=== PATIENT | female | born 1980 | race Caucasian/White ===

== ENCOUNTER 2017-05-11 10:58 | Emergency (ER) | payer BC ==
[2017-05-11] MEDS ORDERED: NORMAL SALINE 1000 ML 1,000 ML IV ONE (11:58)
--- NOTE | 2017-05-11 11:59 | ER Document Report ---
ED Medical Screen (RME) - General Chief Complaint: Vomiting Stated Complaint: VOMITING Time Seen by Provider: 05/11/17 11:57 Notes: Patient states she is feeling depressed and suicidal she is unable to eat and very tearful. TRAVEL OUTSIDE OF THE [place] IN LAST 30 DAYS: No - Related Data Allergies/Adverse Reactions: No Known Allergies Allergy (Verified 05/11/17 11:07) Past Medical History - Social History Chew tobacco use (# tins/day): No Frequency of alcohol use: Social Drug Abuse: None Renal/ Medical History: Denies: Hx Peritoneal Dialysis Past Surgical History: Reports: Hx Appendectomy, Hx Tubal Ligation - R sided - Immunizations Hx Diphtheria, Pertussis, Tetanus Vaccination: Yes Physical Exam - Vital signs Vitals: Temp Pulse Resp BP Pulse Ox 97.7 F 80 20 161/107 H 97 05/11/17 11:08 05/11/17 11:08 05/11/17 11:08 05/11/17 11:08 05/11/17 11:08 Course - Vital Signs Vital signs: Temp Pulse Resp BP Pulse Ox 97.7 F 80 20 161/107 H 97 05/11/17 11:08 05/11/17 11:08 05/11/17 11:08 05/11/17 11:08 05/11/17 11:08
[2017-05-11 12:53] LABS: ABSOLUTE EOSINOPHILS # (AUTO) 0.1 10^3/uL (0.0-0.6); ABSOLUTE LYMPHOCYTES (AUTO) 1.7 10^3/uL (0.5-4.7); ABSOLUTE MONOCYTES (AUTO) 0.3 10^3/uL (0.1-1.4); BASOPHILS % (AUTO) 0.6 % (0-2); EOSINOPHILS % (AUTO) 0.9 % (0-6); HEMATOCRIT 41.6 % (36.0-47.0); HEMOGLOBIN 14.5 g/dL (12.0-15.5); HGB HCT DIFFERENCE 1.9; LYMPHOCYTES % (AUTO) 23.7 % (13-45); MEAN CORPUSCULAR HGB CONC 34.8 g/dL (32.0-36.0); MEAN CORPUSCULAR VOLUME 86 fl (80-97); MONOCYTES % (AUTO) 4.8 % (3-13); RED BLOOD COUNT 4.83 10^6/uL (3.72-5.28); RED CELL DISTRIBUTION WIDTH 13.9 % (11.5-14.0); WHITE BLOOD COUNT 7.2 10^3/uL (4.0-10.5)
[2017-05-11 13:11] LABS: ALANINE AMINOTRANSFERASE 26 U/L (9-52); ALBUMIN 4.8 g/dL (3.5-5.0); ALKALINE PHOSPHATASE 72 U/L (38-126); ANION GAP 12 (5-19); ASPARTATE AMINO TRANSFERASE 13 U/L (14-36); BILIRUBIN,DIRECT 0.1 mg/dL (0.0-0.4); BILIRUBIN,TOTAL 0.8 mg/dL (0.2-1.3); BLOOD UREA NITROGEN 10 mg/dL (7-20); CARBON DIOXIDE 28 mmol/L (22-30); CHLORIDE 105 mmol/L (98-107); CREATININE RESULT 0.73 mg/dL (0.52-1.25); GLUCOSE 115 mg/dL (75-110); POTASSIUM 3.6 mmol/L (3.6-5.0); SODIUM 145.3 mmol/L (137-145); TOTAL PROTEIN 7.6 g/dL (6.3-8.2)
[2017-05-11 13:21] LABS: APPEARANCE,URINE SLIGHTLY-CLOUDY; BILIRUBIN,URINE NEGATIVE (NEGATIVE); GLUCOSE, URINE NEGATIVE (NEGATIVE); KETONES,URINE NEGATIVE (NEGATIVE); LEUKOCYTE ESTERASE,URINE NEGATIVE (NEGATIVE); NITRITE,URINE NEGATIVE (NEGATIVE); PROTEIN,URINE NEGATIVE (NEGATIVE); URINE SPECIFIC GRAVITY 1.023; UROBILINOGEN,URINE NEGATIVE mg/dL (<2.0)
[2017-05-11 13:25] LABS: ALCOHOL < 10 mg/dL (NONE DETECTED)
[2017-05-11 13:38] LABS: URINE BARBITURATES SCREEN NEGATIVE; URINE METHADONE SCREEN NEGATIVE; URINE OPIATES LOW NEGATIVE; URINE PHENCYCLIDINE SCREEN NEGATIVE
--- NOTE | 2017-05-11 15:26 | ER Document Report ---
ED Psych Disorder / Suicide <GABY MAXWELL - Last Filed: 05/11/17 18:12> - General TRAVEL OUTSIDE OF THE [place] IN LAST 30 DAYS: No <MATHEUSNASEEM - Last Filed: 05/11/17 18:54> - General Chief Complaint: Vomiting Stated Complaint: VOMITING Time Seen by Provider: 05/11/17 11:57 Notes: Patient says that she is depressed and feels suicidal. She has been feeling this way for the past few weeks and is gotten worse in the past week. She has feels that she is unable to eat and has no appetite and she is unable to sleep. Patient has a lot of stress in her life over this past year. Her former , father of her son, has been charged and will be convicted of multiple drug dealing charges and is expected to spend time in senior care. Unfortunately, this patient's 17-year-old son was just arrested last week for having marijuana. In addition, patient has been under a lot of stress at her work. Patient denies any ongoing medical care or psychiatric care. She says that she has been diagnosed in the past as ADHD, but is not on any current medications. Denies using any drugs. Denies smoking marijuana. Interestingly, patient's urine drug screen is positive for marijuana and for amphetamines. When the patient was asked about this finding, she said that she has no idea how these substances ended up in her system. I am going to repeat her urine drug screen. Repeat urine drug screen is still positive for marijuana, but is negative for amphetamines or 2. Labs says that they feel that they could see that the patient did have some amphetamine present in the first specimen, but that on the repeat, the blood level is below the trigger point that would report as positive. (NASEEM JARVIS) - Related Data Allergies/Adverse Reactions: No Known Allergies Allergy (Verified 05/11/17 11:07) Past Medical History - Social History Smoking Status: Current Some Day Smoker - Has not smoked cigarettes for 3 days. Chew tobacco use (# tins/day): No Frequency of alcohol use: Social Drug Abuse: None Family History: Reviewed & Not Pertinent Patient has suicidal ideation: Yes Patient has homicidal ideation: No - Past Medical History Cardiac Medical History: Reports: Hx Hypertension - Is on lisinopril, but did not take it this morning. Endocrine Medical History: Denies: Hx Diabetes Mellitus Type 1, Hx Diabetes Mellitus Type 2 Past Surgical History: Reports: Hx Appendectomy, Hx Tubal Ligation - Immunizations Hx Diphtheria, Pertussis, Tetanus Vaccination: Yes <MATHEUSNASEEM - Last Filed: 05/11/17 18:54> Review of Systems <GABY MAXWELL - Last Filed: 05/11/17 18:12> <NASEEM JARVIS - Last Filed: 05/11/17 18:54> - Review of Systems Notes: REVIEW OF SYSTEMS: CONSTITUTIONAL : Denies fever. EENT: Denies eye, ear, nose or mouth or throat pain or other symptoms. CARDIOVASCULAR: Denies chest pain. RESPIRATORY: Denies cough, chest congestion, or shortness of breath. GASTROINTESTINAL: Denies abdominal pain or nausea, vomiting, or diarrhea. GENITOURINARY: Denies difficulty or painful urinating, urinary frequency, blood in urine. MUSCULOSKELETAL: Denies back or neck pain. Denies joint pain or swelling. SKIN: Denies rash or skin lesions. NEUROLOGICAL: Denies LOC or altered mental status. Denies sensory loss or motor deficits. Psychiatric: Tearful and depressed. ALL OTHER SYSTEMS REVIEWED AND NEGATIVE. (NASEEM JARVIS) Physical Exam <GABY MAXWELL - Last Filed: 05/11/17 18:12> - Vital signs Interpretation: Hypertensive <MATHEUSNASEEM - Last Filed: 05/11/17 18:54> - Vital signs Vitals: Temp Pulse Resp BP Pulse Ox 97.7 F 80 20 161/107 H 97 05/11/17 11:08 05/11/17 11:08 05/11/17 11:08 05/11/17 11:08 05/11/17 11:08 - Notes Notes: PHYSICAL EXAMINATION: GENERAL: Vital signs normal except for her elevated blood pressure. Patient is anxious and tearful and appears to be depressed. HEAD: Atraumatic, normocephalic. EYES: Pupils equal round and reactive to light, extraocular movements intact. ENT: oropharynx clear without exudates. Moist mucous membranes. NECK: Normal range of motion, supple. LUNGS: Breath sounds clear and equal bilaterally. HEART: Regular rate and rhythm without murmurs. ABDOMEN: Soft, nontender. No guarding or rebound. BACK: No tenderness throughout entire back. EXTREMITIES: Normal range of motion without pain. NEUROLOGICAL: Normal speech, normal gait. Normal sensory, motor, and reflex exams. Awake, alert, and oriented x3. Cranial nerves normal. PSYCH: N anxious, tearful, depressed. SKIN: Warm, dry, no rashes. (NASEEM JARVIS) Course - Laboratory Result Diagrams: 05/11/17 12:20 05/11/17 12:20 <GABY MAXWELL - Last Filed: 05/11/17 18:12> - Laboratory Result Diagrams: 05/11/17 12:20 05/11/17 12:20 <NASEEM JARVIS - Last Filed: 05/11/17 18:54> - Re-evaluation Re-evalutation: 05/11/17 15:29 Will have mental health evaluate patient. Am repeating her urine drug screen to verify positive to amphetamines and marijuana or not. 05/11/17 18:52 Patient's repeat drug screen is negative for amphetamines this time. Lab says they think they can still see substance present but not sufficient to cause a positive test result. Marijuana is still shown as being present. Patient relates that she ate some brownies over the past couple of days that she did not realize have been fixed with marijuana in them. Uncertain if any other adult rating substance in the brownies. Patient has been evaluated by mental health and she is going to be handled as a discharge with outpatient follow-up. She is being started on Prozac and Zyprexa. (NASEEM JARVIS) - Vital Signs Vital signs: Temp Pulse Resp BP Pulse Ox 97.7 F 80 20 161/107 H 97 05/11/17 11:08 05/11/17 14:50 05/11/17 11:08 05/11/17 11:08 05/11/17 11:08 - Laboratory Laboratory results interpreted by me: 05/11/17 05/11/17 12:20 12:20 Sodium 145.3 H Glucose 115 H AST 13 L Urine Blood MODERATE H Salicylates < 1.0 L Acetaminophen < 10 L Discharge <GABY MAXWELL - Last Filed: 05/11/17 18:12> <NASEEM JARVIS - Last Filed: 05/11/17 18:54> - Discharge Clinical Impression: Depression, Suicidal ideation Condition: Stable Disposition: HOME, SELF-CARE Additional Instructions: DEPRESSION: Your evaluation reveals that you have mental depression. While symptoms may be vague, they often include disturbance of sleep, fatigue, loss of appetite , and general loss of interest in life. While depression may be a side effect of drugs, or a reaction to a major change in your life, many cases have no known cause. If depression is acute, and related to a major loss in your life, you can expect it to clear completely with time. If you have been depressed a long time , are prone to repeated bouts of depression or low mood, or have been thinking of suicide, get help. Depression can be treated with anti-depressant medication and counselling. Long-term depression will often take a few weeks to clear, even with appropriate medication. Follow-up care is important. SUICIDAL IDEATION: Suicidal ideation is a common medical term for thoughts about suicide, which may be as detailed as a formulated plan, without the suicidal act itself. Although most people who undergo suicidal ideation do not commit suicide, some go on to make suicide attempts. The range of suicidal ideation varies greatly from fleeting to detailed planning, role playing, and unsuccessful attempts. While thoughts about suicide are common, most people do not carry out serious actions to commit suicide. Based upon your evaluation and discussion with you, we do not believe you are currently at risk to act upon your thoughts of suicide. You have agreed to return to the Emergency Department, at any time , if you feel inclined to act upon your suicidal thoughts. FOLLOW-UP CARE: You should contact [facility] ([facility]) first thing tomorrow (05/12/17) morning to arrange medication management with Dr. Degroot. You have been provided with an outpatient resource list with the contact information. You should move forward with outpatient therapy with Ms Zee on [facility]. If you experience worsening or a significant change in your symptoms, notify the physician immediately or return to the Emergency Department at any time for re-evaluation. Prescriptions: Fluoxetine HCl [Prozac 20 mg Capsule] 20 mg PO DAILY #10 capsule Olanzapine [Zyprexa 2.5 Mg Tablet] 2.5 mg PO BID #20 tablet Referrals: [facility] [Provider Group] - Follow up as needed
[2017-05-11 16:10] LABS: URINE BARBITURATES SCREEN NEGATIVE; URINE METHADONE SCREEN NEGATIVE; URINE OPIATES LOW NEGATIVE; URINE PHENCYCLIDINE SCREEN NEGATIVE
[2017-05-11 19:03] VITALS: BP 138/86
--- NOTE | 2017-05-11 19:44 | EKG REPORT ---
SEVERITY:- BORDERLINE ECG - SINUS RHYTHM LVH BY VOLTAGE : Confirmed by: Don Haider MD 11-May-2017 19:43:34
--- NOTE | 2017-05-13 19:15 | PSYCHOLOGICAL NOTE ---
Psych Note - Psych Note Psych Note: Patient is a 37-year-old female brought to the Emergency Department by family members subsequent to an emotional breakdown. She was observed by ED staff and this provider to be tearful. She reported becoming overwhelmed and had hit her breaking point. 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 She reported decreased appetite, ability to sleep and energy for the last week. She denied a plan or access to means to harm herself. Patient reported past diagnosis of ADHD but denied any medication treatment for this diagnosis. She stated the Emergency Department staff had told her she was positive for marijuana and amphetamines. She denied any drug use and reported her son had told her, subsequent to her lab results, he had baked brownies at her home with peers and the brownies were laced with marijuana. Patient indicated this was the only way she would have been exposed to the drugs as she denied any drug use. Patient did admit to self-medicating with lots of alcohol. She reported drinking 4-5 beers nightly or a small mixed drink of bourbon and diet Mt. Dew. She stated she has been drinking this amount for the past couple of weeks. She reported she did not use illegal drugs because her biological mother used drugs and she was taken away from her and placed in foster care because of the drug use. Patient endorsed past passive suicidal ideations without plan or means and stated although her life was currently in upheaval she did not really want to kill herself. She reported she had been referred to a therapist through [facility] at her place of employment. She indicated the therapist s name was Bee Zee, but no session had been scheduled as she was waiting to see the outcome of todays visit to the Emergency Department. Patient indicated she was open to medications to address her mood. Patient denied family history of psychiatric illness. Patients adopted father and biological son offered collateral information about the patient to include the patient has frequent verbally aggressive outbursts that are exacerbated by alcohol use and stress. These outbursts were described as screaming and cursing and being triggered by patients frustration with external stimuli. Patient was described as being involved in serial relationships and her son indicated he felt she was trying to find happiness with anyone. He reported the patient would sometimes leave the home on Thursday and he would not see her again until Thursday night or Thursday. He indicated his younger brother, age 12, spent the majority of his time with the adopted grandparents. Both collaterals described the patient as drinking heavily for the last five years. The adopted father reported when the patient moved out of his house within the last few years he removed several large, empty liquor bottles from the patients bedroom. Patient was alert and oriented to person, place time and circumstance. Mood was sad, tearful and weary. Affect was mood congruent. She denied auditory/visual hallucinations. Thought processes were linear, rational and organized. Conversational speech was within normal limits for rate, tone and prosody. Intellectual abilities were estimated within the average range. Attention and concentration were within normal limits. Insight, judgement and impulse control were fair. 1. [id number] (F33.1) Major Depressive Disorder, Recurrent, Mild Impression/Plan: Patient is psychiatrically clear for discharge. Though she continues to demonstrate a tearful affect, there is no evidence of self-harm or harm to others. Patient denies suicidal/homicidal ideation, intent or plan. Provided education regarding appropriate responsibility and boundaries. Provided additional outpatient resources regarding parenting and relational conflicts. Encouraged patient to seek outpatient counseling for her son as well. Patient is already refereed to outpatient therapy through [facility] at her place of employment and she was encouraged to use her available support system. Consulted with Dr. Marshall in the treatment and care of this patient. ED physician in agreement with recommendations and disposition.
== END 2017-05-11 18:45 | disposition home or self-care (01) ==
LOC: ER 10:58
DX: F32.9 Major depressive disorder, single episode, unspecified (principal); R45.851 Suicidal ideations; F41.9 Anxiety disorder, unspecified; I10 Essential (primary) hypertension; F17.210 Nicotine dependence, cigarettes, uncomplicated
CPT/HCPCS: 93005; 99283; 96360; 36415; 80307 ×4; 84703; 85025; 81025; 80053; 81001; 93010; J7030

== ENCOUNTER 2017-07-13 01:54 | Emergency (ER) | payer BC ==
[2017-07-13 02:04] VITALS: BP 129/97
[2017-07-13] MEDS ORDERED: NORMAL SALINE 1000 ML 1,000 ML IV ONE ×2 (02:34)
--- NOTE | 2017-07-13 02:36 | ER Document Report ---
ED GI/ - General Chief Complaint: Nausea/Vomiting Stated Complaint: VOMITING Time Seen by Provider: 07/13/17 02:21 Mode of Arrival: Ambulatory Information source: Patient Notes: 37-year-old female presents to ED for nausea vomiting starting this morning. She states some of the people at work of had the nausea and vomiting and been at work vomiting. She states she just cannot stand the nausea and vomiting anymore today. TRAVEL OUTSIDE OF THE [place] IN LAST 30 DAYS: No - HPI Patient complains to provider of: Abdominal pain - Cramping started after the, Vomiting Onset: This morning Timing/Duration: Intermittent Quality of pain: Cramping Severity at maximum: Moderate Severity in ED: Moderate Pain Level: 4 Location: Other - Upper abdomen Vaginal bleeding (Compared to normal period): None LMP: June 13, 2017 Associated symptoms: Nausea, Vomiting Exacerbated by: Other - Abdominal pain is caused by vomiting according to patient Relieved by: Denies Similar symptoms previously: No Recently seen / treated by doctor: No - Related Data Allergies/Adverse Reactions: No Known Allergies Allergy (Verified 05/11/17 11:07) Past Medical History - General Information source: Patient - Social History Smoking Status: Current Every Day Smoker Cigarette use (# per day): Yes - 2-3 cigarettes a day Chew tobacco use (# tins/day): No Smoking Education Provided: Yes - 4 minutes Frequency of alcohol use: Social Drug Abuse: None 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 Pulmonary Medical History: Reports: None EENT Medical History: Reports: None Neurological Medical History: Reports: None Endocrine Medical History: Reports: None Renal/ Medical History: Reports: None Malignancy Medical History: Reports: None GI Medical History: Reports: None Musculoskeltal Medical History: Reports None Skin Medical History: Reports None Psychiatric Medical History: Reports: None Traumatic Medical History: Reports: None Infectious Medical History: Reports: None Past Surgical History: Reports: Hx Appendectomy, Hx Tubal Ligation - Immunizations Hx Diphtheria, Pertussis, Tetanus Vaccination: Yes Physical Exam - Vital signs Vitals: Temp Pulse Resp BP Pulse Ox 97 F L 94 18 129/97 H 96 07/13/17 02:02 07/13/17 02:02 07/13/17 02:02 07/13/17 02:02 07/13/17 02:02 Course - Re-evaluation Re-evalutation: 07/13/17 05:44 While awaiting all of the results from the lab values on this patient came in for nausea and vomiting, the nurse informed me that the patient told her that she had to go. She states she then got up and walked out of the room and the nurse thought she was just going to the bathroom. She states she saw the positive drug screen and went into the room to see if she had come back and the IV tubing and catheter were in the sink and the patient was gone. She stated that the patient left about 525. When I had reexamined the patient about 510, after she received fluids and Zofran, she states she was feeling much better and wanted to know when she can go home. I had informed her I was waiting for all the test results to return and then we would talk about her going home. - Vital Signs Vital signs: Temp Pulse Resp BP Pulse Ox 97 F L 94 18 129/97 H 96 07/13/17 02:02 07/13/17 02:02 07/13/17 02:02 07/13/17 02:02 07/13/17 02:02 - Laboratory Result Diagrams: 07/13/17 02:25 07/13/17 02:25 Laboratory results interpreted by me: 07/13/17 07/13/17 07/13/17 02:25 02:25 04:00 WBC 18.6 H RBC 5.49 H Hgb 16.1 H Hct 47.1 H Seg Neuts % (Manual) 89 H Band Neutrophils % 1 L Lymphocytes % (Manual) 8 L Monocytes % (Manual) 2 L Abs Neuts (Manual) 16.7 H Potassium 3.5 L BUN 21 H Glucose 134 H AST 42 H Urine Protein 30 H Ur Leukocyte Esterase SMALL H Discharge - Discharge Clinical Impression: Nausea and vomiting Qualifiers: Vomiting type: unspecified Vomiting Intractability: non-intractable Qualified Code(s): R11.2 - Nausea with vomiting, unspecified Disposition: ELOPED
[2017-07-13] MEDS ORDERED: ONDANSETRON HCL INJ/PF 4 MG/2 ML SDV IV ONE (02:46)
[2017-07-13 02:47] LABS: HEMATOCRIT 47.1 % (36.0-47.0); HEMOGLOBIN 16.1 g/dL (12.0-15.5); MEAN CORPUSCULAR HEMOGLOBIN 29.3 pg (27.0-33.4); MEAN CORPUSCULAR HGB CONC 34.1 g/dL (32.0-36.0); MEAN CORPUSCULAR VOLUME 86 fl (80-97); PLATELET COUNT 410 10^3/uL (150-450); RED BLOOD COUNT 5.49 10^6/uL (3.72-5.28); WHITE BLOOD COUNT 18.6 10^3/uL (4.0-10.5)
[2017-07-13 03:06] LABS: ABSOLUTE LYMPHOCYTES# (MANUAL) 1.5 10^3/uL (0.5-4.7); ABSOLUTE MONOCYTES # (MANUAL) 0.4 10^3/uL (0.1-1.4); ABSOLUTE NEUTROPHILS# (MANUAL) 16.7 10^3/uL (1.7-8.2); BAND NEUTROPHILS % (MANUAL) 1 % (3-5); BASOPHILS % (MANUAL) 0 % (0-2); EOSINOPHILS % (MANUAL) 0 % (0-6); LYMPHOCYTES % (MANUAL) 8 % (13-45); MONOCYTES % (MANUAL) 2 % (3-13); SEGMENTED NEUTROPHILS % (MAN) 89 % (42-78); TOTAL CELLS COUNTED 100
[2017-07-13 03:08] LABS: PLATELET COMMENT ADEQUATE; RBC MORPHOLOGY COMMENT NORMO-CYTIC/CHROMIC
[2017-07-13 03:17] LABS: ALANINE AMINOTRANSFERASE 27 U/L (9-52); ALBUMIN 4.8 g/dL (3.5-5.0); ALKALINE PHOSPHATASE 81 U/L (38-126); ANION GAP 12 (5-19); ASPARTATE AMINO TRANSFERASE 42 U/L (14-36); BILIRUBIN,DIRECT 0.4 mg/dL (0.0-0.4); BILIRUBIN,TOTAL 0.6 mg/dL (0.2-1.3); BLOOD UREA NITROGEN 21 mg/dL (7-20); CALCIUM 10.2 mg/dL (8.4-10.2); CARBON DIOXIDE 27 mmol/L (22-30); CHLORIDE 101 mmol/L (98-107); GLUCOSE 134 mg/dL (75-110); POTASSIUM 3.5 mmol/L (3.6-5.0); SODIUM 140.3 mmol/L (137-145); TOTAL PROTEIN 8.2 g/dL (6.3-8.2)
[2017-07-13] MEDS ORDERED: POTASSIUM CHLORIDE 10 MEQ TABLET.SA PO ONE (03:36)
[2017-07-13 04:39] LABS: BILIRUBIN,URINE NEGATIVE (NEGATIVE); COLOR,URINE YELLOW; GLUCOSE, URINE NEGATIVE (NEGATIVE); KETONES,URINE NEGATIVE (NEGATIVE); LEUKOCYTE ESTERASE,URINE SMALL (NEGATIVE); NITRITE,URINE NEGATIVE (NEGATIVE); PROTEIN,URINE 30 mg/dL (NEGATIVE); URINE SPECIFIC GRAVITY 1.026; UROBILINOGEN,URINE NEGATIVE mg/dL (<2.0)
[2017-07-13 04:42] LABS: APPEARANCE,URINE SLIGHTLY HAZY
[2017-07-13 04:50] LABS: URINE AMPHETAMINES SCREEN NEGATIVE; URINE BARBITURATES SCREEN NEGATIVE; URINE BENZODIAZEPINES SCREEN NEGATIVE; URINE COCAINE SCREEN NEGATIVE; URINE MARIJUANA (THC) SCREEN UNCONFIRMED POSITIVE; URINE METHADONE SCREEN UNCONFIRMED POSITIVE; URINE PHENCYCLIDINE SCREEN NEGATIVE
== END 2017-07-13 05:40 | disposition left against medical advice (07) ==
LOC: ER 01:54
DX: R11.2 Nausea with vomiting, unspecified (principal); R10.9 Unspecified abdominal pain; F17.210 Nicotine dependence, cigarettes, uncomplicated
CPT/HCPCS: 99406; 99281; 96361; 96374; 36415; 84703; 85025; 80053; 81001; 80307; J2405; J7030

== ENCOUNTER 2017-09-14 14:48 | Emergency (ER) | payer BC ==
[2017-09-14] MEDS ORDERED: HALOPERIDOL LACTATE INJ 5 MG/1 ML VIAL ONE (14:55)
[2017-09-14] MEDS ORDERED: HALOPERIDOL LACTATE INJ 5 MG/1 ML VIAL IM ONE (14:56)
--- NOTE | 2017-09-14 15:06 | ER Document Report ---
ED GI/ - General Chief Complaint: Vomiting Stated Complaint: POSSIBLE OVERDOSE Time Seen by Provider: 09/14/17 15:04 Notes: The patient is a 37-year-old female, past medical history chronic marijuana user , presents with several days of nausea and vomiting. She took 7 of her boyfriend's methadone earlier in the day to help with her vomiting. She denies abdominal pain, diarrhea, constipation, shortness of breath, trouble breathing, hematemesis, fevers, recent travel or headache. TRAVEL OUTSIDE OF THE [place] IN LAST 30 DAYS: No - Related Data Allergies/Adverse Reactions: No Known Allergies Allergy (Verified 05/11/17 11:07) Past Medical History - General Information source: Patient - Social History Smoking Status: Current Every Day Smoker Drug Abuse: Marijuana, Prescription drugs Family History: Reviewed & Not Pertinent - Past Medical History Cardiac Medical History: Reports: Hx Hypertension - Is on lisinopril, but did not take it this morning. Endocrine Medical History: Denies: Hx Diabetes Mellitus Type 1, Hx Diabetes Mellitus Type 2 Renal/ Medical History: Denies: Hx Peritoneal Dialysis Past Surgical History: Reports: Hx Appendectomy, Hx Tubal Ligation - Immunizations Hx Diphtheria, Pertussis, Tetanus Vaccination: Yes Review of Systems - Review of Systems Notes: REVIEW OF SYSTEMS: CONSTITUTIONAL: -fevers, -chills EENT: -eye pain, -difficulty swallowing, -nasal congestion CARDIOVASCULAR: -chest pain, -syncope. RESPIRATORY: -cough, -SOB GASTROINTESTINAL: -abdominal pain, +nausea, +vomiting, -diarrhea GENITOURINARY: -dysuria, -hematuria MUSCULOSKELETAL: -back pain, -neck pain SKIN: -rash or skin lesions. HEMATOLOGIC: -easy bruising or bleeding. LYMPHATIC: -swollen, enlarged glands. NEUROLOGICAL: -altered mental status or loss of consciousness, -headache, - neurologic symptoms PSYCHIATRIC: -anxiety, -depression. ALL OTHER SYSTEMS REVIEWED AND NEGATIVE. Physical Exam - Vital signs Vitals: Temp Pulse Resp BP Pulse Ox 97.6 F 75 14 141/83 H 100 09/14/17 14:55 09/14/17 14:55 09/14/17 14:55 09/14/17 14:55 09/14/17 14:55 - Notes Notes: PHYSICAL EXAMINATION: GENERAL: Making very loud retching sounds without any active vomiting. HEAD: Atraumatic, normocephalic. EYES: Pupils equal round and reactive to light, extraocular movements intact, sclera anicteric, conjunctiva are normal. ENT: nares patent, oropharynx clear without exudates. Moist mucous membranes. NECK: Normal range of motion, supple without lymphadenopathy LUNGS: Breath sounds clear to auscultation bilaterally and equal. No wheezes rales or rhonchi. HEART: Regular rate and rhythm without murmurs ABDOMEN: Soft, nontender, normoactive bowel sounds. No guarding, no rebound. No masses appreciated. EXTREMITIES: Normal range of motion, no pitting or edema. No cyanosis. NEUROLOGICAL: Cranial nerves grossly intact. Normal speech, normal gait. Normal sensory and motor exams. PSYCH: Normal mood, normal affect. SKIN: Warm, Dry, normal turgor, no rashes or lesions noted. Course - Re-evaluation Re-evalutation: Patient has no signs of methadone overdose and is wide awake and satting 100% on room air. Suspect her nausea, vomiting is related to cannabinoid hyperemesis syndrome since the symptoms resolved after Haldol and capsaicin cream. Counseled patient about smoking cessation of marijuana. She adamantly denies to multiple people that she tried to kill herself and that she was only using her boyfriend's methadone in order to help with her nausea and vomiting. Blood work is unremarkable and abdomen is completely soft and nontender. Will discharge patient home with [facility] referral. - Vital Signs Vital signs: Temp Pulse Resp BP Pulse Ox 97.6 F 75 14 141/83 H 100 09/14/17 14:55 09/14/17 14:55 09/14/17 14:55 09/14/17 14:55 09/14/17 14:55 - Laboratory Result Diagrams: 09/14/17 15:16 Laboratory results interpreted by me: 09/14/17 15:16 BUN 27 H Glucose 161 H Calcium 11.6 H Total Protein 8.6 H Albumin 5.2 H Discharge - Discharge Clinical Impression: Cannabinoid hyperemesis syndrome Nausea and vomiting Qualifiers: Vomiting type: unspecified Vomiting Intractability: non-intractable Qualified Code(s): R11.2 - Nausea with vomiting, unspecified Condition: Stable Disposition: HOME, SELF-CARE Additional Instructions: Your nausea and vomiting is most likely related to her marijuana use. You must stop the marijuana to help out with your nausea and vomiting. You may also use capsaicin cream to help with the nausea. Do not take medications that are not your medications, especially do not take methadone as it may cause you to stop breathing. Return to the ER if you have worsening symptoms. VOMITING: Vomiting (or nausea without vomiting) can be caused by many other different problems. It can mean that something's wrong with the stomach, such as ulcers or inflammation or the intestinal tract, such as appendicitis. But it can also be a symptom of a problem that has nothing to do with the stomach or intestines. Vomiting is common with severe headaches, earaches, tonsillitis, and kidney infections, etc. We see it with pneumonia or heart attacks. Drugs can cause nausea and vomiting. Many abdominal problems cause vomiting; for example, gallstones, kidney stones, pancreatitis, and intestinal obstruction ( blocked bowels). In most cases, curing the vomiting depends on fixing the problem that caused it. For temporary relief, we may use an anti-nausea medicine. For home use, we can prescribe suppositories, chewable pills, pills that dissolve in the mouth, or liquid anti-nausea drugs. If the vomiting seems to be caused by a problem in the stomach, acid-suppressing drugs may be prescribed as well. It's important to avoid dehydration. Sip small amounts of clear liquids ( soft drinks, tea, broth, etc) . Try to take fluids frequently even if you are vomiting to prevent dehydration. Take increasing amounts of fluid and when liquids are being consumed successfully, advance to small amounts of bland food (toast, soups, mashed potatoes, etc.) until you are able to resume a regular diet. Avoid aspirin, tobacco, and alcohol. If the vomiting worsens, if the problem that's making you vomit worsens, or if there's evidence of bleeding in the stomach (such as black, tarry stool, or bloody or black vomit), you should return immediately. Also, return if abdominal pain worsens or becomes localized to one area or you develop high fever. Call your doctor if you aren't improved in 24 hours. INTRAVENOUS (I V) FLUIDS: As part of your care today, you received intravenous (IV) fluids. IV fluids are administered to patients who are dehydrated or to those who have certain chemical (electrolyte) abnormalities that need correcting. ANTINAUSEA MEDICATION: You have been given a medication to suppress nausea and vomiting. This type of medication can be given as a shot, pill, or suppository. It will usually last for many hours. Pills and shots usually last six to eight hours. For the typical illness, only one or two doses of the medication may be necessary. Mild lightheadedness may occur. This type of medicine can cause drowsiness. Do not drive or operate dangerous machinery while under its influence. Do not mix with alcohol. See your doctor at once if you have muscle spasms or tightness, or uncontrollable motions (particularly of the neck, mouth, or jaw). Persistent vomiting or severe lightheadedness should also be evaluated by the physician. REGLAN (METOCLOPRAMIDE): Reglan has been prescribed. This medicine affects the stomach and intestines. It can be used to treat nausea and vomiting, to prevent reflux of stomach acid up into the esophagus, or to increase the contractions of the stomach and intestines. It is often prescribed for esophagitis, and for paralysis of the stomach in diabetics. Reglan can cause either mild restlessness or drowsiness. You should contact the doctor at once if you become extremely restless, anxious, or cannot sleep, or if you develop uncontrollable motions of the lips, tongue, or jaw. Do not take alcohol with this medicine. Do not drive or operate machinery until you have been taking this medicine long enough to know how it affects you. Call the doctor if you develop abdominal pains, lightheadedness, black stool, or blood in the stool or vomitus. FOLLOW-UP CARE: If you have been referred to a physician for follow-up care, call the physician s office for an appointment as you were instructed or within the next two days. If you experience worsening or a significant change in your symptoms, notify the physician immediately or return to the Emergency Department at any time for re-evaluation. Prescriptions: Capsaicin 60 gm TP Q6H PRN #1 unit PRN Reason: For Nausea/Vomiting Metoclopramide HCl [Reglan] 10 mg PO Q8H PRN #10 tablet PRN Reason: Forms: Elevated Blood Pressure Referrals: [facility] [Outside] - Follow up as needed
[2017-09-14] MEDS ORDERED: HALOPERIDOL LACTATE INJ 5 MG/1 ML VIAL IV ONE (15:48)
[2017-09-14] MEDS ORDERED: CAPSAICIN HP 0.075% CREAM 60 GM TP ONE (15:48)
[2017-09-14 16:00] LABS: ALANINE AMINOTRANSFERASE 37 U/L (9-52); ALBUMIN 5.2 g/dL (3.5-5.0); ALKALINE PHOSPHATASE 96 U/L (38-126); ANION GAP 16 (5-19); ASPARTATE AMINO TRANSFERASE 18 U/L (14-36); BILIRUBIN,DIRECT 0.4 mg/dL (0.0-0.4); BILIRUBIN,TOTAL 0.8 mg/dL (0.2-1.3); BLOOD UREA NITROGEN 27 mg/dL (7-20); CALCIUM 11.6 mg/dL (8.4-10.2); CARBON DIOXIDE 25 mmol/L (22-30); CHLORIDE 102 mmol/L (98-107); GLUCOSE 161 mg/dL (75-110); LIPASE 274.5 U/L (23-300); POTASSIUM 4.7 mmol/L (3.6-5.0); SODIUM 142.8 mmol/L (137-145); TOTAL PROTEIN 8.6 g/dL (6.3-8.2)
[2017-09-14] MEDS ORDERED: CAPSAICIN 0.025% CREAM 60 GM TP ONE (16:18)
[2017-09-14] MEDS ORDERED: DIPHENHYDRAMINE HCL 50 MG/ML VIAL IV ONE (16:18)
[2017-09-14] MEDS ORDERED: METOCLOPRAMIDE HCL INJ/PF 10 MG/2 ML SDV IV ONE (16:18)
[2017-09-14] MEDS ORDERED: NORMAL SALINE 1000 ML 1,000 ML IV ONE (16:18)
[2017-09-14 18:07] VITALS: BP 144/64
--- NOTE | 2017-09-14 19:38 | EKG REPORT ---
SEVERITY:- BORDERLINE ECG - SINUS RHYTHM BORDERLINE PROLONGED QT INTERVAL : Confirmed by: Don Haider MD 14-Sep-2017 19:38:34
== END 2017-09-14 18:05 | disposition home or self-care (01) ==
LOC: ER 14:48
DX: F12.10 Cannabis abuse, uncomplicated (principal); R11.2 Nausea with vomiting, unspecified; I10 Essential (primary) hypertension; F11.10 Opioid abuse, uncomplicated; F17.200 Nicotine dependence, unspecified, uncomplicated
CPT/HCPCS: 93005; 99284; 96372; 96361; 96374; 96375; 36415; 83690; 84703; 80053; 93010; J1200; J1630; J3490; J2765; J7030